=== PATIENT | female | born 1995 | race Caucasian/White ===

== ENCOUNTER → 2018-02-06 13:44 | Outpatient (CLI) | payer BC, SELFPAY | PROVIDERS: Family Provider Physician Assistant; PCP Physician Assistant; Visit Provider Physician Assistant | DX: J02.0 Streptococcal pharyngitis (principal) | CPT/HCPCS: 87070; 87077 ==

== ENCOUNTER 2019-03-27 02:15 | Emergency (ER) | payer BC, SELFPAY ==
[2019-03-27 02:15] VITALS: BP 134/53; PULSE 102; RESP 24; TEMP 37.2; O2SAT 98; BMI 30.1
--- NOTE | 2019-03-27 02:28 | DI.RAD.S_ITS ---
PROCEDURE: XR CHEST 2V INDICATIONS: cough, shortness of breath TECHNIQUE: 2 views of the chest were acquired. COMPARISON: None. FINDINGS: Surgical changes and devices: None. Lungs and pleura: Lungs are clear. No pleural effusions or pneumothorax. Mediastinum: Mediastinal contours are normal. Heart size is normal. Bones and chest wall: No suspicious bony abnormalities. Soft tissues appear unremarkable. IMPRESSION: No acute cardiopulmonary disease. Dictated by: Ross Morgan M.D. on 03/27/2019 at 9:53 Approved by: Ross Morgan M.D. on 03/27/2019 at 9:54
[2019-03-27] MEDS: ALBUTEROL/IPRATROPIUM 3 ML AMPUL INH (02:32)
[2019-03-27] MEDS: predniSONE 20 MG TABLET 40 MG PO (02:37)
[2019-03-27 02:48] VITALS: O2SAT 99
--- NOTE | 2019-03-27 03:02 | ED_ITS ---
HPI - Asthma General Chief Complaint: Asthma Stated Complaint: hard time breathing for 1 week/albuteral not worki Time Seen by Provider: 03/27/19 02:20 Source: patient and family Mode of arrival: Ambulatory Limitations: no limitations History of Present Illness HPI Narrative: 23-year-old female nonsmoker with history of asthma presents with a chief complaint of increasing use of her bronchodilators over the past week. She states that she takes her medications and then has to take them again about 4 hours later. She states that her symptoms resolved in between the usage of her medications. She is currently taking Augmentin for the treatment of a posterior sinus complaint and does admit to some runny nose, postnasal drip as well as occasional dry cough. She denies any fever or chills. She had no vomiting or diarrhea. MD complaint: asthma attack and wheezing Related Data Home Medications Medication Instructions Recorded Confirmed ALBUTEROL SULFATE (Ventolin / 0 INH * [place] DOSE/FREQUENCY #0 01/15/08 03/02/19 Proventil) MULTIVITAMIN (Multivitamin 0 PO * [place] DOSE/FREQUENCY #0 01/15/08 03/02/19 -) medroxyprogesterone 150 mg/mL 150 mg IM [id number] 02/06/18 03/02/19 intramuscular suspension doxycycline hyclate PO 06/10/18 03/02/19 Previous Rx's Medication Instructions Recorded albuterol sulfate 2.5 mg INHALATION Q4-6H PRN #90 ml 03/27/19 prednisone 20 mg PO DAILY #5 tab 03/27/19 Allergies Allergy/AdvReac Type Severity Reaction Status Date / Time Sulfa (Sulfonamide Allergy Mild Rash Verified 03/02/19 13:45 Antibiotics) Review of Systems Constitutional Constitutional: Denies chills, Denies fatigue, Denies fever(s), Denies frequent falls, Denies lethargy and Denies weakness Eyes Eyes: Denies change in vision, Denies eye discharge, Denies irritation and Denies loss of vision ENT Ears, Nose, Mouth, and Throat: Denies change in voice, Denies dizziness, Denies neck pain, Denies sore throat and Denies throat swelling Cardiovascular Cardiovascular: Denies chest pain, Denies irregular heart rhythm, Denies lightheadedness, Denies palpitations, Reports dyspnea, Denies dyspnea on exertion and Denies orthopnea Respiratory Respiratory: Reports cough, Reports dyspnea, Denies dyspnea on exertion and Reports wheezing Gastrointestinal Gastrointestinal: Denies abdominal pain, Denies change in bowel habits, Denies diarrhea, Denies nausea and Denies vomiting Genitourinary Genitourinary: Denies hematuria, Denies flank pain, Denies urinary incontinence and Denies urinary urgency Musculoskeletal Musculoskeletal: Denies back pain, Denies muscle weakness, Denies neck pain, Denies numbness and Denies tingling Integumentary/Breasts Skin/Breast: Denies pruritus, Denies erythema, Denies rash and Denies wounds Neurologic Neurologic: Denies behavioral changes, Denies confusion, Denies dizziness, Denies frequent falls, Denies loss of vision, Denies numbness, Denies tingling and Denies weakness Psychiatric Psychiatric: Denies anxiety, Denies behavioral changes, Denies confusion, Denies depression, Denies homicidal ideation and Denies suicidal ideation Endocrine Endocrine: Denies fatigue, Denies flushing and Denies palpitations Hematologic/Lymphatic Hematologic/Lymphatic: Denies easy bruising Allergic/Immunologic Allergic/Immunologic: Denies urticaria, Denies throat swelling and Reports wheezing Patient History Social History Smoking Status: Never smoker Smoking Status: Never smoker Substance Use Type: does not use Exam Narrative Exam Narrative: GENERAL: [23] year old patient appears stated age. Well- nourished, well-developed patient, in mild distress. HEAD: Atraumatic. Normocephalic. EYES: Pupils equal round and reactive. Extraocular motions intact. No scleral icterus. No injection or drainage. ENT: Nose without bleeding, purulent drainage. Throat without erythema, tonsillar hypertrophy or exudate. Airway patent. NECK: Trachea midline. Non tender CARDIOVASCULAR: Regular rate and rhythm without murmurs, gallops, or rubs. RESPIRATORY: Clear to auscultation. Breath sounds equal bilaterally. Very faint and expiratory wheeze, rales, or rhonchi. GASTROINTESTINAL: Abdomen soft, non-tender, nondistended. EXTREMITIES: No edema or joint tenderness. BACK: Nontender without deformity or crepitance. No flank tenderness. NEURO: AOx3. SKIN: No rash or erythema of visible areas Initial Vital Signs Initial Vital Signs: Vital Signs Temperature 98.9 F 03/27/19 02:15 Pulse Rate 102 H 03/27/19 02:15 Respiratory Rate 24 03/27/19 02:15 Blood Pressure 134/53 L 03/27/19 02:15 Pulse Oximetry 98 03/27/19 02:15 Course Orders Ordered: ED Orders 03/27/19 02:28 XR chest 2V Stat 03/27/19 02:35 Influenza A & B (PCR) Stat Discontinued Medications Albuterol/Ipratropium (Duoneb) 3 ml INH NOW ONE Stop: 03/27/19 02:29 Last Admin: 03/27/19 02:32 Dose: 3 ml Documented by: JIN Prednisone (Deltasone) 40 mg PO NOW ONE Stop: 03/27/19 02:29 Last Admin: 03/27/19 02:37 Dose: 40 mg Documented by: JIN Vital Signs Vital signs: Vital Signs - 8 hr 03/27/19 02:15 03/27/19 02:48 03/27/19 03:39 Temperature 98.9 F Pulse Rate 102 H 95 H Respiratory Rate 24 20 Blood Pressure 134/53 L 138/74 Pulse Oximetry 98 99 100 MDM - Asthma Lab Data Labs: Lab Results 03/27/19 Range/Units 02:35 Influenza A (RT-PCR) Flu a negative (NEGATIVE) Influenza B (RT-PCR) Flu b negative (NEGATIVE) Imaging Data Chest x-ray: My Impression: No pneumonia or pneumothorax Discharge Plan Departure Patient Disposition: Home Clinical Impression: Cough due to bronchospasm Asthma with acute exacerbation Qualifiers: Asthma severity: mild Asthma persistence: unspecified Qualified Code(s): J45.901 - Unspecified asthma with (acute) exacerbation Discharge Date/Time: 03/27/19 03:41 Instructions: DI for Asthma -- Adult Activity Restrictions/Additional Instructions: *You have been diagnosed with [asthma exacerbation and bronchospastic cough, likely secondary to upper respiratory infection] *What to do: *Take medications as directed *Follow up with your primary care provider in 2-3 days, call for an appointment. Let them know you were seen in the Emergency Department and that we ask that you be seen in follow up *Return to ER if you should have any new, worsening or concerning symptoms Prescriptions: New prednisone 20 mg tablet 20 mg PO DAILY Qty: 5 RF: 0 albuterol sulfate 2.5 mg /3 mL (0.083 %) solution for nebulization 2.5 mg INHALATION Q4-6H PRN (Reason: bronchospasm) Qty: 90 RF: 0 No Action doxycycline hyclate PO RF: 0 medroxyprogesterone [Depo-Provera] 150 mg/mL suspension 150 mg IM [id number] RF: 0 ALBUTEROL SULFATE (Ventolin / Proventil) 0 INH * [place] DOSE/FREQUENCY Qty: 0 RF: 0 MULTIVITAMIN (Multivitamin -) 0 PO * [place] DOSE/FREQUENCY Qty: 0 RF: 0 Referrals: Rolanda Pedroza ARNP [Primary Care Provider] -
[2019-03-27 03:10] LABS: Influenza A - CEPHEID Flu A NEGATIVE (NEGATIVE); Influenza B - CEPHEID Flu B NEGATIVE (NEGATIVE)
[2019-03-27 03:39] VITALS: BP 138/74; PULSE 95; RESP 20; O2SAT 100
== END 2019-03-27 03:41 | disposition home or self-care (01) ==
PROVIDERS: Emergency Provider Emergency Medicine; Family Provider Physician Assistant; PCP Nurse Practitioner
DX: J45.901 Unspecified asthma with (acute) exacerbation (principal)
CPT/HCPCS: 71046; 87502; 94640; 99283